=== PATIENT | male | born 1970 | race Caucasian/White ===

== ENCOUNTER 2018-10-10 20:25 | Emergency (ER) | payer OTHER ==
[2018-10-10] MEDS ORDERED: Sodium Chloride 0.9% 2,000 ML IV ONE (20:40)
--- NOTE | 2018-10-10 20:40 | C.PDOC ---
History Of Present Illness The patient presents to the ED for evaluation of abdominal pain, diarrhea and chills which began one hour prior to arrival. Patient is able to tolerate PO intake and denies fever, nausea, or recently eating from outside places. Time Seen by Provider: 10/10/18 20:39 Chief Complaint (Nursing): GI Problem History Per: Patient History/Exam Limitations: no limitations Onset/Duration Of Symptoms: Hrs (1) Current Symptoms Are (Timing): Still Present Severity: Mild Pain Scale Rating Of: 2 Location Of Pain/Discomfort: Epigastric (mid) Radiation Of Pain To:: None Quality Of Discomfort: "Pain" Associated Symptoms: Chills, Diarrhea. denies: Fever, Nausea Exacerbating Factors: None Alleviating Factors: None Last Bowel Movement: Today Recent travel outside of the [place]: No Additional History Per: Patient Past Medical History Reviewed: Historical Data, Nursing Documentation, Vital Signs Vital Signs: Last Vital Signs Temp 97.6 F 10/10/18 20:30 Pulse 90 10/10/18 20:30 Resp 16 10/10/18 20:30 BP 107/70 10/10/18 20:30 Pulse Ox 100 10/10/18 20:30 - Medical History PMH: Arthritis (gouty) Surgical History: No Surg Hx Family History: States: Unknown Family Hx - Social History Hx Tobacco Use: No Hx Alcohol Use: No Hx Substance Use: No - Immunization History Hx Tetanus Toxoid Vaccination: No Hx Influenza Vaccination: No Hx Pneumococcal Vaccination: No Review Of Systems Constitutional: Positive for: Chills. Negative for: Fever Cardiovascular: Negative for: Chest Pain, Palpitations Respiratory: Negative for: Cough, Shortness of Breath Gastrointestinal: Positive for: Abdominal Pain, Diarrhea. Negative for: Nausea, Vomiting, Constipation Musculoskeletal: Negative for: Back Pain Skin: Negative for: Rash, Jaundice, Bruising Neurological: Negative for: Weakness, Numbness Physical Exam - Physical Exam Appears: Non-toxic, No Acute Distress Skin: Warm, Dry Head: Normacephalic Eye(s): bilateral: Normal Inspection Oral Mucosa: Moist Neck: Supple Chest: Symmetrical, No Deformity, No Tenderness Cardiovascular: Rhythm Regular, No Murmur Respiratory: No Rales, No Rhonchi, No Wheezing Gastrointestinal/Abdominal: Soft, Tenderness (mild, mid-epigastric ), No Guarding, No Rebound, Other (tymapnic to percussion ) Extremity: Normal ROM, Capillary Refill (less than 2 seconds ) Neurological/Psych: Oriented x3 ED Course And Treatment - Laboratory Results Result Diagrams: 10/10/18 20:46 10/10/18 20:46 O2 Sat by Pulse Oximetry: 100 (on RA) Pulse Ox Interpretation: Normal - CT Scan/US CT A/P Other Rad Studies (CT/US): Read By Radiologist, Radiology Report Reviewed CT/US Interpretation: EXAM: CT Abdomen and Pelvis with IV contrast. CLINICAL HISTORY: Abd pain. TECHNIQUE: Axial computed tomography images of the abdomen and pelvis with intravenous contrast. 0.00 mGy-cm. CONTRAST: With; VISI 320 100MLS. COMPARISON: None provided. FINDINGS: LUNG BASES: A subtle patchy a irspace opacity is seen in the anterior inferior left lingula thought compatible with small pneumonic consolidation. No pleural effusions are seen. LIVER: Unremarkable. GALLBLADDER AND BILE DUCTS: The gallbladder appears within normal limits. No radioopaque gallstones are seen. No biliary ductal dilatation is evident. PANCREAS: Unremarkable. SPLEEN: Unremarkable. ADRENAL GLANDS: Unremarkable. KIDNEYS, URETERS, AND BLADDER: The kidneys appear within normal limits. There is no hydronephrosis or hydroureter. No urinary calculi are seen. The urinary bladder appeared normal in size and configuration. STOMACH AND BOWEL: Some fluid is seen in the lower esophagus which may indicate some gastroesophageal reflux. Also, retained fluid/food debris is seen within the stomach. No evidence of bowel obstruction. There is mild mucosal wall thickening seen within the small intestinal tract which contains fluid suggestive of mild diffuse enteritis. Additionally, mucosal wall thickening is seen within the rectum suggestive of proctitis. Infectious or inflammatory etiologies are thought most likely. APPENDIX: No evidence of acute appendicitis on CT examination. PERITONEUM: No free fluid. No free air. LYMPH NODES: No lymphadenopathy is evident. REPRODUCTIVE: Unremarkable as visualized. VASCULATURE: No evidence of abdominal aortic aneurysm. BONES: No aggressive appearing osseous lesion. No acute osseous pathology evident. IMPRESSION: 1. Evidence of mild diffuse enteritis and proctitis. 2. Fluid retained within the stomach with evidence of some gastroesophageal reflux of fluid into the lower esophagus. 3. Small patchy inferior left lingular pneumonic consolidation. Progress Note: Bloodwork and urinalysis ordered and reviewed. Protonix IVP and IV Fluids given. Reevaluation Time: 00:24 Reassessment Condition: Improved Disposition Counseled Patient/Family Regarding: Studies Performed, Diagnosis, Need For Followup, Rx Given - Disposition Referrals: Narda Eddy MD [Staff Provider] - Disposition: HOME/ ROUTINE Disposition Time: 20:39 Condition: FAIR Additional Instructions: Please return if symptoms recur Prescriptions: Azithromycin [Zithromax Tri-Edward] 500 mg PO DAILY #3 tablet Pantoprazole Sodium [Protonix] 40 mg PO DAILY #14 ect Instructions: Acid Reflux (Gastroesophageal Reflux Disease) in Adults, Pneumonia, Adult (DC) Forms: [employer] (Slovak) Print Language: [place] - Clinical Impression Clinical Impression: GERD (gastroesophageal reflux disease), Pneumonia - Scribe Statement The provider has reviewed the documentation as recorded by the Scribe (Marilyn Dixon) Provider Attestation: All medical record entries made by the Scribe were at my direction and personal ly dictated by me. I have reviewed the chart and agree that the record accurately reflects my personal performance of the history, physical exam, medical decision making, and the department course for this patient. I have also personally directed, reviewed, and agree with the discharge instructions and disposition.
[2018-10-10 20:57] LABS: BASO # 0.1 K/uL (0.0-0.2); BASO % 0.6 % (0.0-2.0); EOS # 0.1 K/uL (0.0-0.7); EOS % 0.7 % (0.0-4.0); HEMOGLOBIN 15.9 g/dL (12.0-18.0); LYMPH # 0.9 K/uL (1.0-4.3); LYMPH % 8.2 % (20.0-40.0); MEAN CELL VOLUME 84.5 fL (80.0-94.0); MEAN PLATELET VOLUME 8.5 fL (7.2-11.7); MONO # 0.8 K/uL (0.0-0.8); MONO % 6.8 % (0.0-10.0); NEUT # 9.5 K/uL (1.8-7.0); NEUT % 83.7 % (50.0-75.0); PLATELET COUNT 278 K/uL (130-400); RBC 5.87 Mil/uL (4.40-5.90); RED CELL DISTRIBUTION WIDTH 13.3 % (11.5-14.5); WHITE BLOOD COUNT 11.3 K/uL (4.8-10.8)
[2018-10-10 21:03] LABS: VENOUS BLOOD GAS BASE EXCESS -3.3 mmol/L (0.0-2.0); VENOUS BLOOD GAS PCO2 30 mmHg (40-60); VENOUS BLOOD GAS PO2 20 mm/Hg (30-55); VENOUS BLOOD PH 7.43 (7.32-7.43)
[2018-10-10 21:04] LABS: ALB/GLOB RATIO 1.7 (1.0-2.1); ALBUMIN 4.7 g/dL (3.5-5.0); ALT/SGPT 47 U/L (21-72); AST/SGOT 28 U/L (17-59); BLOOD UREA NITROGEN 15 mg/dL (9-20); CALCIUM 9.5 mg/dl (8.6-10.4); GFR NON-AFRICAN AMERICAN > 60; LIPASE 130 U/L (23-300)
[2018-10-10 21:45] LABS: BASOPHIL 1 % (0-2); EOSINOPHIL 3 % (0-4); LYMPHOCYTE 9 % (20-40); MONOCYTE 5 % (0-10); NEUTROPHIL 82 % (50-75); PLATELET ESTIMATE NORMAL (NORMAL); TOTAL CELLS COUNTED 100
[2018-10-10 22:52] LABS: URINE BILIRUBIN NEGATIVE (NEGATIVE); URINE BLOOD 1+ (NEGATIVE); URINE CLARITY Clear (Clear); URINE COLOR Yellow (YELLOW); URINE GLUCOSE (UA) NORMAL (Normal); URINE LEUKOCYTE ESTERASE TRACE Leu/uL (Negative); URINE PROTEIN NEGATIVE (NEGATIVE); URINE UROBILINOGEN NORMAL mg/dL (0.2-1.0)
[2018-10-10 23:26] VITALS: RESP 22
[2018-10-10] MEDS ORDERED: Iodixanol 320 MG/ML 100 ML BOTTLE IV ONE (23:43)
[2018-10-11] MEDS ORDERED: Piperacillin/Tazobact 3.375 gm 100 ML IVPB STA (00:24)
[2018-10-11] MEDS ORDERED: Piperacillin/Tazobact 3.375 gm 100 ML IVPB ONE (00:37)
[2018-10-11 01:12] VITALS: BP 125/78; PULSE 88; TEMP 98.7; O2SAT 98
--- NOTE | 2018-10-11 07:48 | CT ---
CT abdomen and pelvis HISTORY: Abdominal pain. COMPARISON: None available. TECHNIQUE: Multiple contiguous axial images were performed through the abdomen and pelvis with the use of intravenous contrast. Subsequently, sagittal and coronal reformatted images were obtained. This CT exam was performed using one or more of the following dose reduction techniques: Automated exposure control, adjustment of the mA and/or kV according to patient size, and/or use of iterative reconstruction technique. Findings: Focal consolidative opacification/nodular consolidation seen within the lingula/inferior aspect of the left upper lobe. This may represent underlying infiltrate and or scarring and or atelectasis and or additional etiology. Clinical correlation. No pleural or pericardial effusion. 5 millimeter calcification seen within the medial aspect of the left hepatic lobe. Liver is otherwise preserved. Gallbladder is preserved. Spleen is preserved. Adrenal glands are preserved. Pancreas is preserved. Fluid-filled and distended stomach. Some fluid is seen in the lower esophagus which may indicate some gastroesophageal reflux. Clinical correlation. Distended and mildly enhancing loops of small bowel seen within the upper mid abdomen which may represent an enteritis. Clinical correlation. Scattered hypodensities in both kidneys, too small to adequately characterize. Right kidney: No calculi or hydronephrosis. 5 millimeter hypodensity in the lower pole of the right kidney, too small to adequately characterize. Left Kidney: No calculi or hydronephrosis. Five and 3 millimeter hypodensities seen within the mid and lower poles of the left kidney also too small to adequately characterize. Mildly thick-walled urinary bladder. Clinical correlation. Heterogeneous prostate. Underdistended and or mildly thickened rectum. Fecal retention in the colon. Appendix is within normal limits. Few shotty para-aortic and inguinal lymph nodes. Small fat containing umbilical hernia. Degenerative changes in the spine with paravertebral osteophytes. Impression: 1. Fluid-filled distended and mildly enhancing loops of small bowel seen within the upper mid abdomen which may represent an enteritis. Clinical correlation. 2. Mildly thickened and or underdistended rectum which may represent a proctitis. Clinical correlation. 3. Fluid retained stomach with evidence of some gastroesophageal reflux of fluid into the lower esophagus. Clinical correlation. 4. Focal consolidative opacification/nodular consolidation seen within the lingula/inferior aspect of the left upper lobe. This may represent underlying infiltrate and or scarring and or atelectasis and or additional etiology. Clinical correlation. 5. Mildly thick-walled urinary bladder. Clinical correlation. A preliminary report was generated at 12:20 a.m. on 10/11/[address] Kervin Akins from [employer].
== END 2018-10-11 01:12 | disposition home or self-care (01) ==
LOC: C.ER 20:25
DX: K21.9 Gastro-esophageal reflux disease without esophagitis (principal); J18.9 Pneumonia, unspecified organism
CPT/HCPCS: 74177; 80053; 81001; 82803; 83690; 85025; 96361; 96365; 96375; 99285; C9113; J1885; J2543; J7030; Q9967